=== PATIENT | male | born 1980 | race Caucasian/White ===

== ENCOUNTER 2020-07-17 09:31 | Emergency (ER) | payer OTHER, SELFPAY ==
[2020-07-17 09:42] VITALS: BP 144/88; PULSE 69; RESP 18; TEMP 37.2; O2SAT 99; BMI 28.5
--- NOTE | 2020-07-17 10:10 | XR_ITS ---
EXAMINATION: XR CHEST CLINICAL INFORMATION: Cough COMPARISON: Previous chest x-ray May 2009 TECHNIQUE: Frontal view of the chest was obtained. FINDINGS: No significant abnormality is noted involving the heart, lungs, mediastinum, bony thorax or soft tissues. XR/XR chest 1V IMPRESSION: Unremarkable examination.
--- NOTE | 2020-07-17 10:10 | ECG_ITS ---
Test Reason : DIFFICULLTY BREATHIN Blood Pressure : / mmHG Vent. Rate : 063 BPM Atrial Rate : 063 BPM P-R Int : 152 ms QRS Dur : 096 ms QT Int : 452 ms P-R-T Axes : 059 058 051 degrees QTc Int : 462 ms Normal sinus rhythm Normal ECG When compared with ECG of 04-DEC-2015 13:09, No significant change was found Referred By: Maya Fields Electronically Signed By:JEREMY COFFEY
--- NOTE | 2020-07-17 10:11 | ED_ITS ---
HPI - Syncope General Chief Complaint: Dyspnea Stated Complaint: Syncope Time Seen by Provider: 07/17/20 10:09 Source: patient Mode of arrival: ambulatory Limitations: no limitations History of Present Illness MD complaint: other (vomiting and body aches x 2 days, had wheezing today got up to find INH and passed out, no injuries) Onset (ago): day(s) (2) Prodromal symptoms: nausea/vomiting Witnessed: Yes - by Bystander Context: standing up Injuries sustained associated with event: none Current symptoms: nausea, weakness and other (did find his inhaler afterwards and used it his wheezing improved) Treatments prior to arrival: none Related Data Previous Rx's Medication Instructions Recorded albuterol sulfate 2 puff INHALATION Q6H PRN #6.7 g 07/17/20 ondansetron 4 mg PO Q8H PRN #20 tab 07/17/20 Allergies Allergy/AdvReac Type Severity Reaction Status Date / Time No Known Allergies Allergy Verified 07/17/20 09:46 [No Known Allergies*] Review of Systems Review of Systems: Constitutional : No Weight loss, No Fever, pos Chills ENT/Mouth : No sore throat, No Rhinorrhea Eyes: No Swelling, No Redness Cardiovascular : No Chest Pain, No SOB, NoEdema Respiratory : No Cough, No Sputum, No Wheezing Gastrointestinal : Positive Nausea, Positive Vomiting, no Diarrhea, no abdominal Pain, No Hematochezia, No Melena Genitourinary : No Dysuria, No Urinary Frequency, No Hematuria, No Urgency Musculoskeletal : No joint pain, pos Myalgias, No Joint Swelling Skin : No Skin Lesions, No rash Neuro : pos Weakness, No Numbness, No Dizziness, No Headache, pos fainting Psych : No Anxiety/Panic, No Depression Heme/Lymph: No Bruising, No Lymphadenopathy Endocrine : No Polyuria, No Polydipsia All other systems reviewed and are negative. FOR[facility]LY [facility], [facility] Past Medical History Attestation statement: The following information was validated with the patient. Medical History (Updated 07/17/20 @ 11:48 by Maya Fields DO) Asthma Cervical vertebral fusion Social History Social History (Updated 07/17/20 @ 10:13 by Maya Fields DO) Alcohol intake: current Smoking Status: Current every day smoker Substance Use Type: Opiates Advance Directives: No Advance Directives Information Provided: Yes Physical Exam Vital Signs: Vital Signs: Last Vital Signs Temp 98.6 F 07/17/20 10:56 Pulse 60 07/17/20 10:56 Resp 18 07/17/20 10:56 BP 138/86 07/17/20 10:56 Pulse Ox 98 07/17/20 10:56 Body Mass Index 28.5 Appearance: Alert. Oriented X3. No acute distress. Eyes: Pupils equal, round and reactive to light. ENT: Pharynx normal. Neck: Normal inspection. Neck supple. CVS: Normal heart rate and rhythm. Pulses normal. Respiratory: No respiratory distress. Breath sounds normal. Abdomen: Soft and non-tender. Skin: Skin warm and dry. Normal skin color. Normal skin turgor. Extremities: No lower extremity edema. No calf ttp Neuro: Oriented X 3. No motor deficit. No sensory deficit. Course Course Course Narrative: blood work, CXR, labs, EKG stable VS stable, no hypoxia, can be managed as outpatient at this time MDM - Syncope MDM Narrative Medical decision making narrative: 40 yo male with asthma who has had n/v for 2 days then noted he had a cough and wheezing got up to find INH and roommate found him on floor - no seizure, likely vasovagal, he is not hypoxic here and has no wheezes, no preceding CP to suggest ACS or PE, will obtain labs, EKG, hydrate and rule out COVID, dispo per results and findings. Lab Data Result diagrams: 07/17/20 10:42 07/17/20 10:42 Labs: Lab Results 07/17/20 07/17/20 07/17/20 Range/Units 10:42 10:42 10:42 WBC 10.3 (4.8-10.8) X10*3/uL RBC 5.00 (4.60-5.80) X10*6/uL Hgb 15.1 (14.0-18.0) g/dl Hct 43.0 (42-52) % MCV 86.0 (80-98) fL MCH 30.2 (27.0-33.0) pg MCHC 35.1 (31.0-36.0) g/dl RDW 11.9 (11.0-16.0) % Plt Count 230 (160-400) X10*3/uL MPV 10.6 (9.4-12.4) fL Immature Gran % (Auto) 0.3 (0.0-0.4) % Neut % (Auto) 83.4 H (45-73) % Lymph % (Auto) 8.7 L (20-40) % [place] % (Auto) 7.2 (2-11) % Eos % (Auto) 0.2 (0-4) % Baso % (Auto) 0.2 (0-2) % Lymph # (Auto) 0.9 L (1.2-4.9) X10*3/uL [place] # (Auto) 0.7 (0.1-1.2) X10*3/uL Eos # (Auto) 0.0 (0.0-0.4) X10*3/uL Baso # (Auto) 0.0 (0.0-0.2) X10*3/uL Abs Immat Gran (auto) 0.03 (0.00-0.03) X10*3/uL Absolute Neuts (auto) 8.6 H (2.0-8.3) X10*3/uL Absolute Nucleated RBC 0.000 (0.0-0.012) X10*3/uL Nucleated RBC % (auto) 0.0 (0.0-0.2) /100WBC Hold Blue Top SEE NOTE Sodium 135 (135-145) mmol/L Potassium 3.4 (3.3-5.1) mmol/l Chloride 102 (96-108) mmol/L Carbon Dioxide 25 (22-29) mmol/L Anion Gap 11 L (12-20) BUN 19 H (9-16) mg/dL Creatinine 0.80 (0.5-1.4) mg/dL Estim Creat Clear Calc 140.1 Estimated GFR > 60 Random Glucose 104 (60-115) mg/dL Calcium 8.9 (8.4-10.2) mg/dL Magnesium 1.9 (1.6-2.6) mg/dL Total Bilirubin 0.5 (0.0-1.0) mg/dL Direct Bilirubin 0.2 (0.0-0.5) mg/dL AST 23 (5-37) U/L ALT 30 (0-40) U/L Alkaline Phosphatase 61 (39-117) U/L Troponin I High Sens (<3.5-35.0) ng/L Total Protein 6.8 (6.5-8.0) g/dL Albumin 4.3 (3.5-5.0) g/dL Lipase 28 (8-78) U/L Coronavirus (PCR) (Negative) Influenza Type A (PCR) (Negative) Influenza Type B (PCR) (Negative) RSV RNA Qual (PCR) (Negative) 07/17/20 07/17/20 Range/Units 10:42 10:42 WBC (4.8-10.8) X10*3/uL RBC (4.60-5.80) X10*6/uL Hgb (14.0-18.0) g/dl Hct (42-52) % MCV (80-98) fL MCH (27.0-33.0) pg MCHC (31.0-36.0) g/dl RDW (11.0-16.0) % Plt Count (160-400) X10*3/uL MPV (9.4-12.4) fL Immature Gran % (Auto) (0.0-0.4) % Neut % (Auto) (45-73) % Lymph % (Auto) (20-40) % [place] % (Auto) (2-11) % Eos % (Auto) (0-4) % Baso % (Auto) (0-2) % Lymph # (Auto) (1.2-4.9) X10*3/uL [place] # (Auto) (0.1-1.2) X10*3/uL Eos # (Auto) (0.0-0.4) X10*3/uL Baso # (Auto) (0.0-0.2) X10*3/uL Abs Immat Gran (auto) (0.00-0.03) X10*3/uL Absolute Neuts (auto) (2.0-8.3) X10*3/uL Absolute Nucleated RBC (0.0-0.012) X10*3/uL Nucleated RBC % (auto) (0.0-0.2) /100WBC Hold Blue Top Sodium (135-145) mmol/L Potassium (3.3-5.1) mmol/l Chloride (96-108) mmol/L Carbon Dioxide (22-29) mmol/L Anion Gap (12-20) BUN (9-16) mg/dL Creatinine (0.5-1.4) mg/dL Estim Creat Clear Calc Estimated GFR Random Glucose (60-115) mg/dL Calcium (8.4-10.2) mg/dL Magnesium (1.6-2.6) mg/dL Total Bilirubin (0.0-1.0) mg/dL Direct Bilirubin (0.0-0.5) mg/dL AST (5-37) U/L ALT (0-40) U/L Alkaline Phosphatase (39-117) U/L Troponin I High Sens < 3.5 (<3.5-35.0) ng/L Total Protein (6.5-8.0) g/dL Albumin (3.5-5.0) g/dL Lipase (8-78) U/L Coronavirus (PCR) NEGATIVE (Negative) Influenza Type A (PCR) NEGATIVE (Negative) Influenza Type B (PCR) NEGATIVE (Negative) RSV RNA Qual (PCR) NEGATIVE (Negative) ECG Data Attestation: I personally reviewed and interpreted this ECG as follows: ECG interpretation date: 07/17/20 ECG interpretation time: 11:18 Interpretation: Rate: 63 Rhythm: NSR [place]: normal Normal P waves. Normal ZAYDA. Normal QRS complex. ST T wave : no JESUS qTC: normal prior studies: no acute ischemia The study has been interpreted contemporaneously by me. . Discharge Plan Discharge Clinical Impression: Acute dehydration Vomiting Qualifiers: Vomiting type: unspecified Vomiting Intractability: non-intractable Nausea presence: with nausea Qualified Code(s): R11.2 - Nausea with vomiting, unspecified Syncope Qualifiers: Syncope type: unspecified Qualified Code(s): R55 - Syncope and collapse Patient Disposition: Home, Self-Care Instructions: Acute Nausea and Vomiting (ED), Syncope (ED), Dehydration (ED) Additional Instructions: return to ED for any worsening symptoms or concerns Prescriptions: New ondansetron 4 mg tablet,disintegrating 4 mg PO Q8H PRN (Reason: nausea and vomiting) Qty: 20 RF: 0 albuterol sulfate 90 mcg/actuation HFA aerosol inhaler 2 puff inhalation Q6H PRN (Reason: shortness of breath or wheezing) Qty: 6.7 RF: 0 Referrals: Physician,Unknown [Primary Care Provider] - 2 days (PCP if not better) Stand Alone Forms: Work/School Release
[2020-07-17] MEDS: ondansetron HCL 4 MG/2 ML VIAL IVPUSH (10:52)
[2020-07-17] MEDS: 0.9 % Sodium Chloride 1,000 ML 999 ML IVCONT (10:53)
[2020-07-17 10:56] VITALS: BP 138/86; PULSE 60; RESP 18; TEMP 37; O2SAT 98
[2020-07-17 10:56] LABS: MANUAL DIFF FLAG NO
[2020-07-17 10:58] LABS: Basophils Percent Auto 0.2 % (0-2); Eosinophils Percent Auto 0.2 % (0-4); Hemoglobin 15.1 g/dl (14.0-18.0); Imm Gran Abs Auto 0.03 X10*3/uL (0.00-0.03); Imm Gran Pct Auto 0.3 % (0.0-0.4); Lymphocytes Absolute Auto 0.9 X10*3/uL (1.2-4.9); Lymphocytes Percent Auto 8.7 % (20-40); Mean Corpuscular HGB Conc 35.1 g/dl (31.0-36.0); Mean Corpuscular Hemoglobin 30.2 pg (27.0-33.0); Mean Platelet Volume 10.6 fL (9.4-12.4); Monocytes Absolute Auto 0.7 X10*3/uL (0.1-1.2); Monocytes Percent Auto 7.2 % (2-11); Neutrophils Absolute Auto 8.6 X10*3/uL (2.0-8.3); Neutrophils Percent Auto 83.4 % (45-73); Platelet Count 230 X10*3/uL (160-400); Red Cell Distribution Width 11.9 % (11.0-16.0); White Blood Count 10.3 X10*3/uL (4.8-10.8)
[2020-07-17 11:31] LABS: Alanine Aminotransferase 30 U/L (0-40); Albumin Level 4.3 g/dL (3.5-5.0); Alkaline Phosphatase 61 U/L (39-117); Anion Gap 11 (12-20); Aspartate Amino Transferase 23 U/L (5-37); Bilirubin Direct 0.2 mg/dL (0.0-0.5); Bilirubin Total 0.5 mg/dL (0.0-1.0); Blood Urea Nitrogen 19 mg/dL (9-16); Calcium 8.9 mg/dL (8.4-10.2); Carbon Dioxide 25 mmol/L (22-29); Chloride 102 mmol/L (96-108); Creatinine Clr Calc Pharmacy 140.1; Estimated Glomerular Filt Rate > 60; Glucose Random 104 mg/dL (60-115); Lipase 28 U/L (8-78); Magnesium 1.9 mg/dL (1.6-2.6); Potassium 3.4 mmol/l (3.3-5.1); Sodium 135 mmol/L (135-145); Total Protein 6.8 g/dL (6.5-8.0)
[2020-07-17 11:34] LABS: Troponin-I High Sensitivity < 3.5 ng/L (<3.5-35.0)
[2020-07-17 11:43] LABS: Influenza A PCR NEGATIVE (Negative); Influenza B PCR NEGATIVE (Negative); Resp Syncy Virus RNA Qual PCR NEGATIVE (Negative); SARS COV2 PCR INHOUSE NEGATIVE (Negative)
[2020-07-17 12:57] VITALS: BP 144/76; PULSE 77; RESP 18; O2SAT 98
== END 2020-07-17 13:09 | disposition home or self-care (01) ==
PROVIDERS: Emergency Provider Emergency Medicine
DX: B34.9 Viral infection, unspecified (principal); Z20.828 Contact with and (suspected) exposure to other viral communicable diseases; H66.92 Otitis media, unspecified, left ear; E11.9 Type 2 diabetes mellitus without complications
CPT/HCPCS: 0241U; 36415; 71045; 80048; 80076; 83690; 83735; 84484; 85025; 93005; 96361; 96374; 99284; J2405

== ENCOUNTER 2023-09-10 07:43 | Emergency (ER) | payer OTHER, SELFPAY ==
[2023-09-10] VITALS (8 sets, daily range): BP systolic 126–143; BP diastolic 79–91; PULSE 53–71; RESP 13–16; TEMP 36.2–36.9; O2SAT 97–99; BMI 28.6
--- NOTE | ~2023-09-10 | XR_ITS ---
EXAMINATION: XR CHEST CLINICAL INFORMATION: Syncope versus seizure. COMPARISON: 07/17/2020 TECHNIQUE: 2 views of the chest were obtained. FINDINGS: The lungs are well expanded. No focal consolidation. No pleural effusion. Cardiac silhouette is unchanged. XR/XR chest 2V IMPRESSION: No acute abnormality.
--- NOTE | ~2023-09-10 | MR_ITS ---
MRI OF THE BRAIN WITH AND WITHOUT IV CONTRAST INDICATION: Cyst/mass effect extension.Syncope vs seizure. COMPARISON: CTA head and neck 09/10/2023. TECHNIQUE: Multiplanar multisequence MR imaging of the brain was obtained without and following the administration of 9 mL of Gadavist without complication. FINDINGS: There is no pathologic intracranial enhancement. Mild chronic microangiopathy. There is a 4.2 cm x 2.3 cm arachnoid cyst within the anteromedial aspect of the left middle cranial fossa resulting in mass effect on the left temporal lobe. There is no hydrocephalus, extra-axial surface collection, or herniation. The major flow voids at the skull base are preserved. There is no acute infarct on diffusion-weighted imaging. There is no intracranial hemorrhage on the gradient recalled echo acquisition. 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 The cerebellar tonsils are normally positioned. The cerebellum and brainstem are normal. The craniocervical junction is normal. Osseous marrow signal intensity is homogenous. The visualized soft tissues are unremarkable. MR/MR head/brain wo/w con IMPRESSION: - No acute intracranial findings. - Mild chronic microangiopathy. 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 - There is a 4.2 cm x 2.3 cm arachnoid cyst within the anteromedial aspect of the left middle cranial fossa resulting in mass effect on the left temporal lobe.
--- NOTE | ~2023-09-10 | CT_ITS ---
CT ANGIOGRAM NECK WITH CONTRAST CT ANGIOGRAM BRAIN WITH CONTRAST CLINICAL INFORMATION: Syncope versus seizure. COMPARISON: None available. TECHNIQUE: Test bolus sequences followed by intravenous administration 70 mL of Omnipaque 350. Helical imaging was performed in the axial plane from the thoracic inlet to the skull vertex. Delayed postcontrast imaging of the head was also performed. The data was processed at the sand technologist workstation for generation of MIP sequences. Angled MIPs and volume rendered reformatted images were also generated at an offline 3D workstation under concurrent supervision. Stenoses are assessed in accordance with NASCET criteria unless otherwise indicated. This CT examination was performed using dose optimization techniques as appropriate, variously including the following: *Automated exposure control *Adjustment of mA and/or kV according to patient size (this includes techniques or standardized protocols for targeted exams where dose is matched to indication/reason for exam; i.e. 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 There is a 4.2 cm x 2.3 cm arachnoid cyst within the anteromedial aspect of the left middle cranial fossa resulting in mass effect on the left temporal lobe. There is no intracranial hemorrhage, hydrocephalus, extra-axial surface collection, midline shift, or other herniation pattern. May to white matter differentiation is diffusely maintained without evidence of an evolved acute territorial infarct. The basilar cisterns are preserved. No significant soft tissue abnormality. No acute osseous abnormality. The paranasal sinuses and the mastoid air cells are well aerated.] CERVICAL SOFT TISSUES AND LUNG APICES: Postoperative changes following ACDF at C5-C6 and C6-C7. There is severe degenerative disc disease at C3-C4 and C4-C5 with sclerotic changes and severe disc volume loss at both of these levels. NECK CTA: [There is a classic 3 vessel configuration of the aortic arch. Proximal arch vessels are non-stenotic. The vertebral arteries are codominant. No significant ostial stenosis is visualized on either side. Both vertebral arteries are widely patent throughout their extracranial cervical course. Both common and internal carotid arteries are normal in course and caliber.] BRAIN CTA: [There is normal opacification of major intracranial arteries. No focal flow-limiting stenosis nor discrete proximal large artery occlusion. No aneurysm. Timing of the contrast bolus allows assessment of the major dural venous sinuses, which all opacify normally] CT/CT angio head neck IMPRESSION: - No acute intracranial findings. 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 There is a 4.2 cm x 2.3 cm arachnoid cyst within the anteromedial aspect of the left middle cranial fossa resulting in mass effect on the left temporal lobe. - No acute arterial occlusions and no significant arterial stenoses within the head or neck. - Postoperative changes following ACDF at C5-C6 and C6-C7. There is severe degenerative disc disease at C3-C4 and C4-C5 with sclerotic changes and severe disc volume loss at both of these levels.
--- NOTE | 2023-09-10 07:50 | ECG_ITS ---
Test Reason : syncope Blood Pressure : / mmHG Vent. Rate : 062 BPM Atrial Rate : 062 BPM P-R Int : 156 ms QRS Dur : 080 ms QT Int : 402 ms P-R-T Axes : 050 055 039 degrees QTc Int : 408 ms Normal sinus rhythm Early repolarization Normal ECG When compared with ECG of 17-JUL-2020 11:09, T wave amplitude has increased in Anterior leads QT has shortened Referred By: Rani Nixon Electronically Signed By:QUINTIN BOB MD
--- NOTE | 2023-09-10 07:51 | PC.NURSE ---
pt ambulates with brisk steady gait, speech is normal radial pulse is strong and regular
[2023-09-10 08:02] LABS: MANUAL DIFF FLAG NO
[2023-09-10 08:04] LABS: Basophils Percent Auto 0.4 % (0-2); Eosinophils Absolute Auto 0.3 X10*3/uL (0.0-0.4); Eosinophils Percent Auto 2.9 % (0-4); Hematocrit 44.3 % (42.0-52.0); Hemoglobin 15.5 g/dl (14.0-18.0); Imm Gran Abs Auto 0.02 X10*3/uL (0.00-0.03); Imm Gran Pct Auto 0.2 % (0.0-0.4); Lymphocytes Absolute Auto 1.5 X10*3/uL (1.2-4.9); Lymphocytes Percent Auto 15.8 % (20-40); Mean Corpuscular Hemoglobin 30.5 pg (27.0-33.0); Mean Corpuscular Volume 87.2 fL (80.0-98.0); Mean Platelet Volume 9.8 fL (9.4-12.4); Monocytes Absolute Auto 0.5 X10*3/uL (0.1-1.2); Monocytes Percent Auto 5.6 % (2-11); Neutrophils Percent Auto 75.1 % (45-73); Platelet Count 234 X10*3/uL (160-400); Red Blood Count 5.08 X10*6/uL (4.60-5.80); Red Cell Distribution Width 12.5 % (11.0-16.0); White Blood Count 9.4 X10*3/uL (4.8-10.8)
[2023-09-10 08:17] LABS: Alanine Aminotransferase 23 U/L (0-40); Albumin Level 4.2 g/dL (3.5-5.0); Alkaline Phosphatase 76 U/L (39-117); Anion Gap 12 (12-20); Aspartate Amino Transferase 18 U/L (5-37); Bilirubin Direct < 0.2 mg/dL (0.0-0.5); Bilirubin Total 0.2 mg/dL (0.0-1.0); Blood Urea Nitrogen 13 mg/dL (9-16); Calcium 9.5 mg/dL (8.4-10.2); Carbon Dioxide 25 mmol/L (22-29); Chloride 106 mmol/L (96-108); Creatinine Clr Calc Pharmacy 132.5; Estimated Glomerular Filt Rate > 60; Glucose Random 92 mg/dL (60-115); Potassium 4.4 mmol/L (3.3-5.1); Sodium 139 mmol/L (135-145); Total Protein 7.3 g/dL (6.5-8.0)
--- NOTE | 2023-09-10 08:18 | ED_ITS ---
HPI - General Adult General Chief complaint: Syncope Stated complaint: lost consciousness Time Seen by Provider: 09/10/23 07:58 Source: patient, family, RN notes reviewed and old records reviewed Mode of arrival: ambulatory History of Present Illness HPI narrative: 43-year-old male with a past medical history of asthma, HTN, presenting to ED with complaining of 4 ?syncope vs seizure episodes since yesterday. witnessed 3 episodes yesterday described as patient being initially confused, losing postural tone, eyes remained open however unresponsive. Denies head trauma during any incident. Patient reports additional episode today while in the shower, patient states he felt confused/like something was going to happen and woke up in position on the shower floor. Denies incontinence, tongue biting, or witnessed seizure-like activity during any episode. Denies prior history of syncope. Reports minimal headache and SOB at present. Denies vision change/loss, nausea/vomiting, CP, abdominal pain, focal weakness. Reports occasional ETOH/marijuana use, denies other illicit drugs or illness Related Data Previous Rx's Medication Instructions Recorded albuterol sulfate 90 mcg/actuation 2 puff inhalation Q6H PRN 07/17/20 aerosol inhaler shortness of breath or wheezing #6.7 grams ondansetron 4 mg disintegrating 4 mg PO Q8H PRN nausea and 07/17/20 tablet vomiting #20 tabs levetiracetam 500 mg tablet 500 mg PO BID 30 days #60 tabs 09/10/23 (Keppra) Allergies Allergy/AdvReac Type Severity Reaction Status Date / Time No Known Allergies Allergy Verified 07/17/20 09:46 [No Known Allergies*] Review of Systems 2 Review of Systems: Constitutional: No Fever, No Chills ENT/Mouth: No Ear Pain, No Nasal Congestion, No sore throat, No Rhinorrhea, No Swallowing Difficulty Cardiovascular: No Chest Pain, +SOB Respiratory: No Cough, No Sputum, No Wheezing Gastrointestinal: No Nausea, No Vomiting, No Diarrhea, No Constipation, No Abdominal pain Genitourinary: No Dysuria, No Urinary Frequency, No Hematuria, No Urinary Incontinence/retention, No Flank Pain Musculoskeletal: No joint pain, No Myalgias, No Joint Swelling Skin: No Skin Lesions, No rash Neuro: No Weakness, No Numbness, No Paresthesias, +LOC, +PARMAR Yes all other systems are reviewed and are negative Constitutional: Constitutional: Reports as per HPI Neurologic: Denies Abnormal speech present [facility] Past Medical History Attestation statement: The following information was validated with the patient. Source: old records reviewed Medical History Cervical vertebral fusion Asthma Social History Social History Alcohol intake: current Alcohol intake frequency: 0-2 drinks per day Smoked in Last 30 Days: Yes Substance Use Type: Marijuana Substance Use Frequency: Chronic Longstanding Last Used Substance: Days (ago) Advance Directives: No Physical Exam ED Vital Signs: Vital Signs - 24 hr 09/10/23 07:46 09/10/23 08:05 09/10/23 08:05 Temperature 98.4 F Pulse Rate 68 71 Respiratory Rate 16 16 Blood Pressure 143/89 H 132/88 Pulse Oximetry 98 99 99 Oxygen Delivery Method Room Air Room Air Room Air 09/10/23 09:39 09/10/23 10:27 09/10/23 10:28 Temperature 97.2 F Pulse Rate 61 53 64 Respiratory Rate 13 Blood Pressure 127/79 126/82 134/83 Pulse Oximetry 98 Oxygen Delivery Method Room Air 09/10/23 10:29 09/10/23 12:42 09/10/23 16:11 Temperature 97.7 F Pulse Rate 64 69 60 Respiratory Rate 16 16 Blood Pressure 142/84 H 133/91 H 130/83 Pulse Oximetry 98 97 Oxygen Delivery Method Room Air Room Air BMI result Body Mass Index 28.6 Const General: cooperative, healthy appearing and no acute distress Orientation/consciousness: patient oriented x3 Limitations: no limitations HENMT Head: Yes normal to inspection and Yes atraumatic Ears: hearing grossly normal bilaterally General nose exam: Normal external nose present Face and sinus: Yes normal facial exam Throat: Yes posterior oropharynx normal and Yes uvula midline Eyes General: appearance normal, both eyes and all related structures Pupils: Equal, round and reactive pupils present EOM: EOMs intact bilaterally Neck Neck: Yes normal visual inspection and Yes no meningeal signs Resp Effort & Inspection: normal respiratory effort and no respiratory distress Auscultation: clear to auscultation bilaterally, no crackles and no wheezes Cardio Rate: regular rate Heart sounds: S1 normal heart sound present and S2 normal heart sound present GI Inspection: Yes normal to inspection Palpation (GI): Soft to palpation, nontender, no guarding and not rigid Back/Spine/Pelvis Other: No midline cervical/thoracic/lumbar spinous tenderness/step-off or deformity Skin Rashes: no rashes Wounds: no wounds Neuro General: patient oriented x3, gait normal, tone normal, moves all extremities, no meningeal signs, no focal motor deficits and CN's II-XI intact bilaterally Cranial nerves: Yes CN's II-XII intact bilaterally and Yes Equal, round and reactive pupils present Cognition (Neuro): normal cognition Speech: No Abnormal speech present Gait exam (Neuro): Normal gait present Motor exam (neuro): 5/5 motor strength present throughout, Pronator motor function not present and no tremor noted Coordination: butdos-eg-citb test normal Romberg Test: Negative Extrem General: Yes normal to inspection Course Course Course Narrative: -labs reassuring. D-dimer negative, PE unlikely. Lactic acid WNL, seizure less likely. Troponin negative. -ethanol negative XR chest 2V IMPRESSION: No acute abnormality. CT angio head neck IMPRESSION: - No acute intracranial findings. 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 There is a 4.2 cm x 2.3 cm arachnoid cyst within the anteromedial aspect of the left middle cranial fossa resulting in mass effect on the left temporal lobe. - No acute arterial occlusions and no significant arterial stenoses within the head or neck. - Postoperative changes following ACDF at C5-C6 and C6-C7. There is severe degenerative disc disease at C3-C4 and C4-C5 with sclerotic changes and severe disc volume loss at both of these levels. > case discussed with ED attending Dr. Nixon, likely incidental finding however will consult Neurosurgery. - 1125--call placed to [facility] transfer line to consult Neurosurgery. -spoke with neurosurgical ASHLEY Vasquez at [facility] who recommended brain MRI with and without contrast with stealth protocol. We will re-consult with MRI results. They also recommended Neurology consult. >> spoke with Neurology, Dr. Mcqueen who recommended Keppra loading, MRI, and touch base with MRI results. Suspect seizures -1527--MR head/brain wo/w con IMPRESSION: - No acute intracranial findings. - Mild chronic microangiopathy. 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 - There is a 4.2 cm x 2.3 cm arachnoid cyst within the anteromedial aspect of the left middle cranial fossa resulting in mass effect on the left temporal lobe. > [facility] neurosurgery and Dr. Mcqueen re-consulted -Dr. Mcqueen recommends initiating patient on 500 mg b.i.d. of Keppra with outpatient neurology and neurosurgical follow-up. -waiting to hear back from [facility] neurosurgical reccs, 1648--ED care transferred to ASHLEY Peoples pending their recommendations and anticipated discharge Reevaluation(s) Reevaluation #1: Discussed with [facility] Neurosurgery, ASHLEY Fall who reviewed the images and discussed with her attending and no neurosurgical intervention is recommended at this time. Therefore they do not see any indication for transfer. I rediscussed with the patient, he reports feeling 100% at his baseline. He has had no further episodes remains neuro intact. He is comfortable with discharge this plan. Discussed return precautions as well as seizure precautions. Time: 17:03 Medications Administered Discontinued Medications Generic Name Dose Route Start Last Admin Trade Name Pradeep PRN Reason Stop Dose Admin Acetaminophen 650 mg 09/10/23 09:49 09/10/23 10:54 Acetaminophen 325 Mg Tablet PO 09/10/23 09:50 650 mg ONCE ONE Administration Gadobutrol 10 ml 09/10/23 13:47 09/10/23 13:48 Gadobutrol 10 Ml Vial IVPUSH 09/10/23 13:48 9 ml ONCE ONE Administration Sodium Chloride 1,000 mls @ 999 mls/hr 09/10/23 09:00 09/10/23 10:54 Ns IV 09/10/23 10:00 Infused .Q1H1M SHANTEL Infusion Levetiracetam 1,000 mg in 100 mls @ 400 mls/hr 09/10/23 12:04 09/10/23 12:57 Keppra IV 09/10/23 12:18 Infused ONCE ONE Infusion Iohexol 100 ml 09/10/23 10:30 09/10/23 10:30 Iohexol 350 Mg/Ml 100 Ml Infus..Btl IV 09/10/23 10:31 65 ml ONCE ONE Administration Nicotine 21 mg 09/10/23 15:19 09/10/23 15:34 Nicotine 21 Mg Patch.Td24 TRANSDERMA 09/10/23 15:20 21 mg ONCE ONE Administration Medical Decision Making Medical Decision Making MDM Narrative: 43-year-old male with a past medical history of asthma, HTN, presenting to ED with complaining of 4 ?syncope vs seizure episodes since yesterday. On exam vital signs stable, NAD, nontoxic appearing, no evidence of trauma, no focal neuro deficits, no midline spinous tenderness. Concern for syncope vs seizure. Rule out metabolic/infectious etiologies. PE on differential. Lower suspicion for CVA/TIA Plan: EKG, labs, UA, CXR, CTA head and neck, IVF, re-evaluate Please refer to course for remaining clinical decision making, interpretation of labs/imaging results, and discussions with consultants and/or family members. Differential Diagnosis Differential Diagnoses: The differential diagnosis associated with the presentation includes As above Admission/Observation Consideration of admission/observation: Escalation of care including admission/observation considered Lab Data [facility] Lab Attestation statement: I reviewed the patient's lab results. 09/10/23 07:58 09/10/23 07:58 Labs: Lab Results 09/10/23 09/10/23 09/10/23 Range/Units 07:58 08:55 12:18 WBC 9.4 (4.8-10.8) X10*3/uL RBC 5.08 (4.60-5.80) X10*6/uL Hgb 15.5 (14.0-18.0) g/dl Hct 44.3 (42.0-52.0) % MCV 87.2 (80.0-98.0) fL MCH 30.5 (27.0-33.0) pg MCHC 35.0 (31.0-36.0) g/dl RDW 12.5 (11.0-16.0) % Plt Count 234 (160-400) X10*3/uL MPV 9.8 (9.4-12.4) fL Immature Gran % (Auto) 0.2 (0.0-0.4) % Neut % (Auto) 75.1 H (45-73) % Lymph % (Auto) 15.8 L (20-40) % [place] % (Auto) 5.6 (2-11) % Eos % (Auto) 2.9 (0-4) % Baso % (Auto) 0.4 (0-2) % Lymph # (Auto) 1.5 (1.2-4.9) X10*3/uL [place] # (Auto) 0.5 (0.1-1.2) X10*3/uL Eos # (Auto) 0.3 (0.0-0.4) X10*3/uL Baso # (Auto) 0.0 (0.0-0.2) X10*3/uL Abs Immat Gran (auto) 0.02 (0.00-0.03) X10*3/uL Absolute Neuts (auto) 7.0 (2.0-8.3) x10*3/uL Absolute Nucleated RBC 0.000 (0.0-0.012) X10*3/uL Nucleated RBC % (auto) 0.0 (0.0-0.2) /100WBC PT 11.3 (11.1-13.3) SEC INR 0.9 (0.9-1.1) D-Dimer High Sensitivty < 150 NG/ML Sodium 139 (135-145) mmol/L Potassium 4.4 (3.3-5.1) mmol/L Chloride 106 (96-108) mmol/L Carbon Dioxide 25 (22-29) mmol/L Anion Gap 12 (12-20) BUN 13 (9-16) mg/dL Creatinine 0.82 (0.5-1.4) mg/dL Estim Creat Clear Calc 132.5 Estimated GFR > 60 Random Glucose 92 (60-115) mg/dL Lactic Acid 1.1 (0.5-2.0) mmol/L Calcium 9.5 D (8.4-10.2) mg/dL Magnesium 2.1 (1.6-2.6) mg/dL Total Bilirubin 0.2 (0.0-1.0) mg/dL Direct Bilirubin < 0.2 (0.0-0.5) mg/dL AST 18 (5-37) U/L ALT 23 (0-40) U/L Alkaline Phosphatase 76 (39-117) U/L Troponin I High Sens < 2.7 (<3.5-35.0) ng/L Total Protein 7.3 (6.5-8.0) g/dL Albumin 4.2 (3.5-5.0) g/dL Urine Color Yellow Urine Appearance Clear Urine pH 6.5 (5.0-9.0) Ur Specific [place] >= 1.030 H (1.005-1.025) Urine Protein Negative (Neg-Trace) mg/dL Urine Glucose (UA) Negative (Negative) mg/dL Urine Ketones Negative (Negative) mg/dL Urine Blood Negative (Negative) Urine Nitrite Negative (Negative) Ur Leukocyte Esterase Negative (Negative) Urine RBC 0-2 (0-2) /HPF Urine WBC 0-5 (0-5) /HPF Ur Squamous Epith Cells 0-2 (0-2) /HPF Urine Bacteria None Seen (None Seen) Hyaline Casts 0-2 (0-2) /LPF Urine Opiates Screen Not Detected (Not Detect) Urine Fentanyl Screen POSITIVE H (Not Detect) Ur Barbiturates Screen Not Detected (Not Detect) Ur Phencyclidine Scrn Not Detected (Not Detect) Ur Amphetamines Screen Not Detected (Not Detect) U Benzodiazepines Scrn Not Detected (Not Detect) Urine Cocaine Screen Not Detected (Not Detect) U Marijuana (THC) Screen POSITIVE H (Not Detect) Ethyl Alcohol < 10 mg/dL Independent Interpretation I performed an independent interpretation of an: EKG (My interpretation normal sinus rhythm rate of 62. DE interval 156. T-wave amplitude has increased in anterior leads when compared to prior. No STEMI.) Radiology Impression Discussion of test interpretation with radiology: I have reviewed the radiologist's reading. Independent Historian Clinical information obtained from an independent historian. History obtained from or confirmed by: Spouse External Record Review External record reviewed: Inpatient record, Office record, Outpatient record, Prior outpatient labs, Prior outpatient radiology, Primary care record and Outside ED record Tests considered The following testing was considered but not selected: As above Chronic Conditions Patient?s care impacted by: Hypertension Discharge Plan Discharge Clinical Impression: Intracranial arachnoid cyst, Seizure Patient Disposition: Still a Patient Instructions: New-Onset Seizure in Adults (ED) Additional Instructions: Your workup indicates you have a 4.2 cm x 2.3 cm arachnoid cyst in your left medial cranial fossa We discussed your findings with Neurology and Neurosurgery. They recommended starting you on Keppra, an antiseizure medication, twice daily YOU NEED TO FOLLOW-UP WITH NEUROLOGY AND NEUROSURGERY OUTPATIENT With respect to your seizures, If symptoms persist or worsen, come more constant/recurrent, you develop headache, nausea/vomiting, focal weakness return to the ED immediately PLEASE PRACTICE SEIZURE PRECAUTIONS. YOU SHOULD NOT BE DRIVING, OPERATING MACHINERY, SWIMMING/BATHING OR SHOWERING ALONE Prescriptions: New levetiracetam [Keppra] 500 mg tablet 500 mg PO BID 30 Days Qty: 60 0RF No Action ondansetron 4 mg tablet,disintegrating 4 mg PO Q8H PRN (Reason: nausea and vomiting) Qty: 20 0RF albuterol sulfate 90 mcg/actuation HFA aerosol inhaler 2 puff inhalation Q6H PRN (Reason: shortness of breath or wheezing) Qty: 6.7 0RF Referrals: [facility] Neurosurgery [Outside] Christ Mcqueen MD [Physician] -
[2023-09-10 08:24] LABS: Troponin-I High Sensitivity < 2.7 ng/L (<3.5-35.0)
[2023-09-10 08:56] LABS: Ethanol < 10 mg/dL; Magnesium 2.1 mg/dL (1.6-2.6)
[2023-09-10 09:05] LABS: INTERNATIONAL NORM RATIO 0.9 (0.9-1.1); Prothrombin Time 11.3 SEC (11.1-13.3)
[2023-09-10 09:09] LABS: D Dimer High Sensitivity < 150 NG/ML
[2023-09-10 09:15] LABS: Lactic Acid 1.1 mmol/L (0.5-2.0)
[2023-09-10] MEDS: 0.9 % Sodium Chloride 1,000 ML 999 ML IV (09:34)
--- NOTE | 2023-09-10 10:04 | PC.NURSE ---
felice coop. no focal neuro def. mild h/a continues- nasir peters aware. piv c/d/i. pt went to xray.currently in ct scan.
[2023-09-10] MEDS: iohexoL 350 MG/ML 100 ML INFUS..BTL IV (10:30)
[2023-09-10] MEDS: Acetaminophen 325 MG TABLET 650 MG PO (10:54)
[2023-09-10 12:28] LABS: Appearance Urine Clear; Color Urine Yellow; Glucose Urine UA Negative (Negative); Leukocyte Esterase Urine Negative (Negative); Nitrite Urine Negative (Negative); PH 6.5 (5.0-9.0); Specific Gravity - Urine >= 1.030 (1.005-1.025); Urine Blood Negative (Negative); Urine Ketones Negative (Negative); Urine Protein Negative (Neg-Trace)
[2023-09-10 12:31] LABS: Bacteria Urine None Seen (None Seen); Hyaline Casts Urine 0-2 /LPF (0-2); RBC Urine 0-2 /HPF (0-2); Squamous Epithelial Cell Urine 0-2 /HPF (0-2); WBC Urine 0-5 /HPF (0-5)
[2023-09-10 12:39] LABS: Amphetamine Screen Urine Not Detected (Not Detect); Barbiturates, Urine Not Detected (Not Detect); Benzodiazepines Screen Urine Not Detected (Not Detect); Cannabinoid Screen Urine POSITIVE (Not Detect); Cocaine Screen Urine Not Detected (Not Detect); Fentanyl, urine POSITIVE (Not Detect); Opiate Screen Urine Not Detected (Not Detect); Phencyclidine Screen Urine Not Detected (Not Detect)
[2023-09-10] MEDS: levETIRAcetam in NaCl (iso-os) 1,000 MG/100 ML PIGGYBACK 400 MG IV (12:39)
[2023-09-10] MEDS: gadobutroL 10 ML VIAL IVPUSH (13:48)
[2023-09-10] MEDS: Nicotine 21 MG PATCH.TD24 TRANSDERMA (15:34)
== END 2023-09-10 17:11 | disposition still patient (30) ==
PROVIDERS: Physician Assistant; Emergency Provider Emergency Medicine Emergency Medical Services
DX: R56.9 Unspecified convulsions (principal); R55 Syncope and collapse; G93.0 Cerebral cysts; Z79.899 Other long term (current) drug therapy
CPT/HCPCS: 36415; 70496; 70498; 70553; 71046; 80048; 80076; 80307; 81001; 83605; 83735; 84484; 85025; 85379; 85610; 93005; 96361; 96365; 96375; 99285; A9585; J1953; Q9967

== ENCOUNTER → 2023-09-10 07:50 | Outpatient (BNV) | payer OTHER, SELFPAY | PROVIDERS: Emergency Provider Emergency Medicine Emergency Medical Services; Visit Provider Internal Medicine Cardiovascular Disease | DX: R55 Syncope and collapse (principal) | CPT/HCPCS: 93010 ==